=== PATIENT | female | born 1945 | race Hispanic/Latino ===

== ENCOUNTER → 2017-04-14 | Outpatient (CLI) | payer OTHER, MEDICARE | END | disposition home or self-care (01) | LOC: OIH 16:36 | PROVIDERS: ATTEND Family Medicine | DX: R06.02 Shortness of breath (principal) | CPT/HCPCS: 71046 ==

== ENCOUNTER → 2019-01-19 | Outpatient (CLI) | payer OTHER, MEDICARE | END | disposition home or self-care (01) | LOC: RAH 14:44 | PROVIDERS: ATTEND Family Medicine | DX: D35.00 Benign neoplasm of unspecified adrenal gland (principal) | CPT/HCPCS: 76775 ==